=== PATIENT | female | born 1990 | race Caucasian/White ===

== ENCOUNTER → 2017-02-23 | Outpatient (CLI) | payer BC ==
--- NOTE | 2017-02-23 12:33 | Diagnostic Imaging Report ---
Ultrasound of the appendix. INDICATION: Right lower quadrant pain. FINDINGS: The right lower quadrant demonstrates no fluid collection or abscess. The appendix is not seen. IMPRESSION: The appendix is not seen, probably obscured by bowel gas. Correlate clinically. Dictated by: Dictated on workstation # [id number]
--- NOTE | 2017-02-23 12:40 | Diagnostic Imaging Report ---
Transabdominal and transvaginal pelvic ultrasound. INDICATION: Pelvic pain, right lower quadrant pain. FINDINGS: The uterus is 7.9 x 4.5 x 4.6 cm. The endometrial stripe is 2 mm in thickness. The myometrium is slightly heterogeneous with no focal lesion seen. The right ovary is 6.4 x 3.9 x 3.7 cm. There is a 3.8 x 3.1 x 3.3-cm simple-appearing cyst in the right ovary. In addition there is a follicle with internal debris and septations probably hemorrhagic measuring 1.8 x 1.3 x 2.3 cm. Arterial and venous waveforms are demonstrated in the adjacent right ovarian parenchyma. The left ovary is 1.8 x 1.6 x 2.3 cm in size with normal follicles and arterial flow seen. No significant fluid collection or free fluid in the pelvis seen. IMPRESSION: There is a small hemorrhagic follicle and a 3.8-cm simple-appearing cyst seen in the right ovary. Dictated by: Dictated on workstation # [id number]
== END ==
LOC: RAD 09:14
PROVIDERS: ATTEND Nurse Practitioner
DX: N83.201 Unspecified ovarian cyst, right side (principal)
CPT/HCPCS: 76705; 76830; 76856

== ENCOUNTER → 2017-08-18 | Outpatient (CLI) | payer BC ==
--- NOTE | 2017-08-21 12:11 | Diagnostic Imaging Report ---
EXAMINATION: Ultrasound of the right breast. INDICATION: Right axillary mass. COMPARISON: No prior studies are available for comparison. FINDINGS: By history, the patient has a palpable abnormality in the right axilla. The ultrasound examination of this area, however, failed to show any discrete solid or cystic mass. I suspect that the palpable abnormality in question is related to fibroglandular tissue alone; however, if clinical concern regarding an underlying abnormality persists, then biopsy should still be considered. IMPRESSION: There is no discrete solid or cystic mass in the area of the patient's palpable abnormality. Recommendations as above. ACR BI-RADS Category 1: Negative. Dictated by: Dictated on workstation # [id number]
== END ==
LOC: RAD 13:41
DX: R22.31 Localized swelling, mass and lump, right upper limb (principal); M79.621 Pain in right upper arm

== ENCOUNTER → 2020-03-30 | Outpatient (CLI) | payer BC ==
--- NOTE | 2020-03-30 14:50 | Diagnostic Imaging Report ---
INDICATION: Twin . TECHNIQUE: Multiple real-time grayscale images were obtained over the gravid uterus. COMPARISON: 01/27/2020. FINDINGS: The prior OB ultrasound exam performed [place] [facility] [place] [facility] on 01/27/2020 noted twin living fetuses approximately 23 weeks 1 days gestation. On this exam, both fetuses are again evident.. Twin A is cephalic in presentation on the maternal right while twin B is also cephalic in presentation on maternal left. heart motion for each twin was identified and a rate of 140 BPM was recorded between A and 176 BPM for twin B. There are no abnormalities identified. The amniotic fluid volume is within normal limits. A membrane was noted. The placenta for twin A is on the maternal right and posterior and for twin B anterior and on the maternal left. The growth parameter have progressed as expected since the prior exam. The estimated weight for fetus A is in the 60th percentile and for fetus B in the 78th percentile. Biometrical measurements are as follows: Biparietal 8.98 cm, age 36 weeks 3 days. Head circumference 32.06 cm, age 36 weeks 2 days. Abdominal circumference 25.80 cm, age 30 weeks 0 days. Femur length 6.24 cm, age 32 weeks 3 days. Sonographic estimate age: 33 weeks 6 days. Sonographic estimated date of delivery: 05/12/2020. Estimated Weight: 1838 gm (+/- 268 gm). LMP percentile: 60%. heart rate: 140 beats per minute. number: 1 of 2. IMPRESSION: 1. There are twin living fetus in cephalic presentation. The fetuses are approximately 32 weeks 4 days gestation +/- 2 weeks. EDC remains May 24, 2020. 2. There are no abnormalities identified. 3. The growth parameters have progressed as expected since the prior exam. Dictated by: Dictated on workstation # [id number]
== END ==
LOC: RAD 13:00
PROVIDERS: ATTEND Obstetrics & Gynecology
DX: O30.043 Twin pregnancy, dichorionic/diamniotic, third trimester (principal); Z3A.30 30 weeks gestation of pregnancy
CPT/HCPCS: 76805; 76810

== ENCOUNTER → 2020-04-21 | Outpatient (CLI) | payer BC ==
--- NOTE | 2020-04-21 15:59 | Diagnostic Imaging Report ---
INDICATION: Twin . TECHNIQUE: Multiple real-time grayscale images were obtained over the gravid uterus. COMPARISON: 03/30/2020. FINDINGS: Twin live intrauterine is noted. Baby A is cephalic and to the right. Baby B is cephalic and to the left. Baby A heart rate is 122 bpm. Baby B heart rate is 146 bpm. Baby A placenta is posterior and to the right. Baby B placenta is anterior and to the left. Amniotic fluid volume appears appropriate. Biophysical profile score for baby A is 8/8. Biophysical profile score for baby B is 8/8. Biometrical measurements are as follows: Biparietal 9.81 cm, age 42 weeks 2 days. Head circumference 33.33 cm, age 38 weeks 1 days. Abdominal circumference 29.17 cm, age 33 weeks 2 days. Femur length 6.83 cm, age 35 weeks 1 days. Sonographic estimate age: 36 weeks 5 days. Sonographic estimated date of delivery: 05/14/2020. Estimated Weight: 2533 gm (+/- 370 gm). LMP percentile: 62%. heart rate: 122 beats per minute. number: 1 of 2. IMPRESSION: Twin live intrauterine approximately 36-37 weeks gestational age. No complicating features are seen. Biophysical profile scores are both 8/8 for baby A and baby B. Dictated by: Dictated on workstation # [id number]
== END ==
LOC: RAD 13:30
PROVIDERS: ATTEND Obstetrics & Gynecology
DX: O30.043 Twin pregnancy, dichorionic/diamniotic, third trimester (principal); Z3A.36 36 weeks gestation of pregnancy
CPT/HCPCS: 76805; 76810; 76819

== ENCOUNTER → 2020-04-30 | Outpatient (CLI) | payer BC ==
--- NOTE | 2020-04-30 14:59 | Diagnostic Imaging Report ---
INDICATION: Twin . EXAMINATION: A biophysical profile was performed of twin A and twin B. FINDINGS: Twin A: Twin A is in cephalic presentation. heart rate was recorded at 140 bpm. Amniotic fluid index is 10.7 cm. Biophysical profile score is normal at 8 out of 8. Twin B: Twin B is in a cephalic presentation. heart rate was recorded at 130 bpm. Amniotic fluid index is 10.7 cm. Biophysical profile score is 8 out of 8. IMPRESSION: Twin intrauterine with biophysical profile scores of 8 out of 8 for both twins. Dictated by: Dictated on workstation # [id number]
== END ==
LOC: RAD 12:00
PROVIDERS: ATTEND Obstetrics & Gynecology
DX: O30.043 Twin pregnancy, dichorionic/diamniotic, third trimester (principal); Z3A.00 Weeks of gestation of pregnancy not specified
CPT/HCPCS: 76810; 76819

== ENCOUNTER → 2020-05-14 | Outpatient (CLI) | payer BC ==
[~2020-05-14] MED LIST: ACET-93 PO; BENZ78AE5 TP; DCS100C PO; FERR325T18 PO; IBUP-844 PO; PREN1TAB19 PO
== END ==
LOC: LABNPT 08:29
PROVIDERS: ATTEND Obstetrics & Gynecology
DX: Z01.89 Encounter for other specified special examinations (principal); Z20.828 Contact with and (suspected) exposure to other viral communicable diseases
CPT/HCPCS: 87635

== ENCOUNTER 2020-05-15 07:00 | Inpatient (IN) | payer BC ==
[2020-05-15] VITALS (58 sets, daily range): BP systolic 90–176; BP diastolic 54–131
[~2020-05-15] VITALS: Ht 175 cm; Wt 85.3 kg
--- NOTE | 2020-05-15 07:13 | NUR ---
ROBEL FERNANDEZ presented to unit via ambulatory from ED, accompanied by Sung, , with c/o INDUCTION. ROBEL FERNANDEZ weighed, gowned, voided, and to bed. EFHM and TOCO applied, VS taken. ROBEL FERNANDEZ oriented to bed controls, call light, TV, heat, and A/C controls.
[2020-05-15] MEDS ORDERED: D5 LR IV SOLUTION 1,000 ML IV ONE (07:51)
[2020-05-15] MEDS ORDERED: OXYTOCIN PRE-MIX DRIP 500 ML IV SCH ×2 (08:00→18:45)
[2020-05-15] MEDS ORDERED: MINERAL OIL CONCENTRATE 99.9% 15 ML UDC TOP PRN (08:00)
[2020-05-15 08:31] LABS: BASOPHILS % (AUTO) 0 % (0-10); EOSINOPHILS # (AUTO) 0.1 10^3/uL (0.0-0.3); EOSINOPHILS % (AUTO) 1 % (0-10); HEMATOCRIT 31 % (35-52); HEMOGLOBIN 10.1 g/dL (11.5-16.0); LYMPHOCYTES # (AUTO) 1.3 10^3/uL (1.0-4.0); LYMPHOCYTES % (AUTO) 12 % (12-44); MEAN CORPUSCULAR HEMOGLOBIN 29 pg (25-34); MEAN CORPUSCULAR HGB CONC 33 g/dL (32-36); MEAN CORPUSCULAR VOLUME 88 fL (80-99); MEAN PLATELET VOLUME 11.1 fL (9.0-12.2); MONOCYTES % (AUTO) 9 % (0-12); NEUTROPHILS # (AUTO) 8.5 10^3/uL (1.8-7.8); NEUTROPHILS % (AUTO) 78 % (42-75); PLATELET COUNT 157 10^3/uL (130-400); WHITE BLOOD COUNT 10.9 10^3/uL (4.3-11.0)
[2020-05-15] MEDS ORDERED: fentaNYL 2 mcg/ml BUPIVA 0.125 100 ML ONE (08:31)
[2020-05-15] MEDS ORDERED: LACTATED RINGERS 1,000 ML IV SCH (08:45)
[2020-05-15] MEDS ORDERED: fentaNYL INJECTION 100 MCG/2 ML AMP ONE (09:30)
[2020-05-15] MEDS ORDERED: PREN1TAB19 PO (09:31)
[2020-05-15] MEDS ORDERED: LACTATED RINGERS 1,000 ML IV ONE (09:45)
[2020-05-15] MEDS ORDERED: NALOXONE 0.4 MG/ML 1 ML (NARCAN) VIAL IV PRN ×2 (09:45)
[2020-05-15] MEDS ORDERED: diphenhydrAMINE 50 MG/ML INJ (BENADRYL) IV PRN (09:45)
[2020-05-15] MEDS ORDERED: EPIDURAL (fentaNYL 2 MCG/ML BUPIVA 0.125%)100 ML BAG EPI PRN (09:45)
[2020-05-15] MEDS ORDERED: METOCLOPRAMIDE INJ 10 MG/2 ML (REGLAN) IV PRN (09:45)
[2020-05-15 10:05] LABS: BILIRUBIN,URINE NEGATIVE (NEGATIVE); CLARITY,URINE SL CLOUDY; COLOR,URINE YELLOW; GLUCOSE, URINE (UA) NEGATIVE (NEGATIVE); KETONES,URINE NEGATIVE (NEGATIVE); LEUKOCYTE ESTERASE ,URINE 3+ (NEGATIVE); NITRITE,URINE NEGATIVE (NEGATIVE); PH,URINE 5.5 (5-9); PROTEIN,URINE NEGATIVE (NEGATIVE)
[2020-05-15 10:17] LABS: BACTERIA,URINE LARGE /HPF; RBC,URINE 0-2 /HPF; SQUAMOUS EPITHELIAL CELL,UR 25-50 /HPF; WBC,URINE 25-50 /HPF
[2020-05-15] MEDS ORDERED: LIDOCAINE/EPI 2% 1:200,00 (XYLOCAINE) 10 ML VIAL ONE (11:14)
[2020-05-15] MEDS: ONDANSETRON 4 MG/2 ML (SDV) Z0FRAN IV PRN ×3 (11:18→21:15)
--- NOTE | 2020-05-15 13:59 | History & Physical-OB ---
OB - Chief Complaint & HPI Date/Time Date of Admission: Date of Admission: May 15, 2020 at 07:04 Date seen by a Provider: May 15, 2020 Time Seen by a Provider: 09:00 Chief Complaint/History OB-Reason for Admission/Chief: Induction of Labor (Twin gestation) Hx : 1 Hx Para: 0 Expected Date of Delivery: May 31, 2020 Gestational Age in Weeks: 37 Gestational Age in Days: 5 Other reason for admission: Twin gestation with mild growth discordance; testing wnl. Gestational hypertension. no proteinuria MFM recommended induction 37-38 + weeks. IOL today due to favorable cervix, elevated blood pressures and mild discordance of growth. rub NI O- GBS - HbSAg- Hep c - HIV- VDRL NR Admission Nurse Assessment Rev: Yes Allergies and Home Medications Allergies Uncoded Allergies: Bactrim, Sulfa (Allergy, Mild, Vomiting, 05/15/20) Home Medications Vit/Iron Fumarate/FA 1 Each Tablet, 1 EACH PO DAILY, (Reported) Patient Home Medication List Home Medication List Reviewed: Yes OB - History Hx of Present Ultrasounds: Normal mid trimester US Obstetrical Complications: Gestational Hypertension Obstetrical History Hx : 2 Hx Para: 0 Patient Past Medical History N[place] Social History/Family History HIV/AIDS: No Recent Infectious Disease Expo: No Sexually Transmitted Disease: No Alcohol Use: Denies Use Recreational Drug Use: No Smoking Cessation: Never smoker Immunizations Hepatitis A: No Hepatitis B: No Tetanus Booster (TDap): Less than 5yrs Date of Influenza Vaccine: Mar 26, 2020 Rubella: not immune RPR/VDRL: Negative GBS Status: Negative HBsAG: Negative OB - Admission Exam Physical Exam Vitals: Vital Signs 05/15/20 05/15/20 05/15/20 05/15/20 07:30 09:32 10:02 10:15 Temp 37.1 Pulse 100 Resp 16 B/P (MAP) 113/67 (82) Pulse Ox 100 O2 Delivery Room Air Heart: Rhythm Normal Lungs: Clear, Equal Abdomen: Gravid Extremities: Normal Reflexes: Normal Cervical Dilatation: 3cm Effacement: 75% Station: -1 Membranes: Intact Heart Rate: 140's Accelerations: Accelerations Present Decelerations: No Decelerations Short Term Variability: Present Nursing Home Variability: Average (6-25) Contractions on Admission: >10 Minutes Apart Labs Laboratory Tests Test 05/15/20 07:20 05/15/20 08:12 Range/Units Urine Color YELLOW Urine Clarity SL CLOUDY Urine pH 5.5 5-9 Urine Specific [place] 1.010 L 1.016-1.022 Urine Protein NEGATIVE NEGATIVE Urine Glucose (UA) NEGATIVE NEGATIVE Urine Ketones NEGATIVE NEGATIVE Urine Nitrite NEGATIVE NEGATIVE Urine Bilirubin NEGATIVE NEGATIVE Urine Urobilinogen 0.2 < = 1.0 MG/DL Urine Leukocyte Esterase 3+ H NEGATIVE Urine RBC (Auto) NEGATIVE NEGATIVE Urine RBC 0-2 /HPF Urine WBC 25-50 H /HPF Urine Squamous Epithelial Cells 25-50 H /HPF Urine Crystals NONE /LPF Urine Bacteria LARGE H /HPF Urine Casts NONE /LPF Urine Mucus NEGATIVE /LPF Urine Culture Indicated CULTURE PENDING White Blood Count 10.9 4.3-11.0 10^3/uL Red Blood Count 3.49 L 3.80-5.11 10^6/uL Hemoglobin 10.1 L 11.5-16.0 g/dL Hematocrit 31 L 35-52 % Mean Corpuscular Volume 88 80-99 fL Mean Corpuscular Hemoglobin 29 25-34 pg Mean Corpuscular Hemoglobin Concent 33 32-36 g/dL Red Cell Distribution Width 13.3 10.0-14.5 % Platelet Count 157 130-400 10^3/uL Mean Platelet Volume 11.1 9.0-12.2 fL Immature Granulocyte % (Auto) 1 % Neutrophils (%) (Auto) 78 H 42-75 % Lymphocytes (%) (Auto) 12 12-44 % Monocytes (%) (Auto) 9 0-12 % Eosinophils (%) (Auto) 1 0-10 % Basophils (%) (Auto) 0 0-10 % Neutrophils # (Auto) 8.5 H 1.8-7.8 10^3/uL Lymphocytes # (Auto) 1.3 1.0-4.0 10^3/uL Monocytes # (Auto) 1.0 0.0-1.0 10^3/uL Eosinophils # (Auto) 0.1 0.0-0.3 10^3/uL Basophils # (Auto) 0.0 0.0-0.1 10^3/uL Immature Granulocyte # (Auto) 0.1 0.0-0.1 10^3/uL OB - Assessment/Plan/Diagnosis Assessment Assessment: induction of labor, other (37 5/7 week gestation/ di di twins/ mild gest hypertension) Admission Dx Twin induction of labor Will AROM and augment with pitocin Anticipate x 2 Admission Status: Inpatient Order (span 2 midnights) Reason for Inpatient Admission: Labor Plan Plan: Induction CLARIBEL MANUEL DO May 15, 2020 13:59
[2020-05-15] MEDS ORDERED: CATHETER FLUSH 10 ML SYR IV SCH ×2 (14:00→22:00)
[2020-05-15] MEDS: D5 LR IV SOLUTION 1,000 ML IV SCH ×2 (15:04→21:58)
[2020-05-15] MEDS ORDERED: LIDOCAINE PF 2% 5 ML (XYLOCAINE) VIAL ONE (15:29)
[2020-05-15] MEDS: fentaNYL 2 mcg/ml BUPIVA 0.125 100 ML EPI PRN ×2 (15:45→21:46)
--- NOTE | 2020-05-15 17:03 | NUR ---
Dr Hill notified of 8-9 cms per phone. [phone] Dr Hill present. Pt very uncomfortable with epidural. Cervix remains.
[2020-05-15] MEDS ORDERED: WITCH HAZEL(TUCKS) 40 EA JAR TOP PRN (18:45)
[2020-05-15] MEDS ORDERED: TETANUS,DIPTH,PERTUSS P/F (BOOSTRIX) 0.5 ML VIAL IM ONE (18:45)
[2020-05-15] MEDS ORDERED: BENZOCAINE/MENTHOL (DERMOPLAST) 60 ML CAN TP PRN (18:45)
[2020-05-15] MEDS ORDERED: MEASLES,MUMPS,RUBELLA 1 EA INJ SQ ONE (18:45)
--- NOTE | 2020-05-16 00:44 | OB Labor & Delivery Record ---
Vag Delivery Note Vag Delivery Note Date of Delivery: 05/16/20 Preoperative Diagnosis: Nery Gaviria is a 30 /Para 2 / 0,Gestational Age 37 5/7 weeks, twin gestation, mild gestational hypertension, growth discordance Postoperative Diagnosis: Same Surgeon: CLARIBEL AMNUEL Anesthesia: epidural, local Delivery Type: vacuum assisted vaginal delivery of twins Findings: Viable twin girls , apgars Twin A 9/9, B 7/9, weight Twin A 6#2 ounces, B 6#4ounces Lacerations: right MLE Intact placenta with 3 vessel cord. No nuchal cord, body cord or shoulder dystocia Estimated Blood Loss:300 ml Complications: None Condition: Stable Description of Procedure: The patient is a 30 /Para 2 / 0,Gestational Age 37 5/7 weeks, twin gestation, mild gestational hypertension, growth discordance who presented for induction of labor.. She was admitted and informed consent was obtained. Her labor course was remarkable for AROM and induction of labor with pitocin. She progressed to complete dilatation and began to push. She was then set up for delivery. With + 2 station and due to maternal fatigue (after 2 hours of pushing) a low outlet vacuum was performed. The vacuum was placed and, with two pushes and no popoff Twin A 's head was delivered atraumatically in the SYLVAIN position. The shoulders and remainder of the 's body were then delivered without difficulty. Upon delivery, the head was held below the level of the perineum and the mouth and nares were bulb suctioned. The cord was doubly clamped and cut and the infant was handed off to the pediatric staff. There was a 1st degree laceration noted, but this was not repaired at this time due to the delivery of the second twin. An US was then done for position of Twin B. It was still vertex, but high in the pelvis (floating), so pitocin was increased. After the head began to descend, AROM was accomplished. She then began to push and pushed for > 1 1/2 hours. There were deep variable decelerations. With +2 station, due to deep variable decelerations (category II strip) and continued maternal fatigue, low outlet vacuum was placed. The head was op, so positioning was carefully assessed prior to placing the vacuum. The head was delivered with two pushes and then a popoff. A right mediolateral episiotomy had previously been cut after injecting the perineum with 1%lidocaine with epinephrine. As the head was delivering, the vacuum was left off and the was allowed to deliver. There was a compound presentation with the 's hand alongside its face. The shoulders and remainder of the infants body was then delivered without any difficulty. The nose and mouth were bulb suctioned and the cord was double clamped and cut. The was handed off to the heat treat furnace operator. Two intact placentas with 3-vessel cord delivered via Felicitas and there was found to be minimal bleeding.~ Vigorous fundal massage was performed and the fundus was found to be firm. IV oxytocin was given. Examination of the vagina and perineum revealed no extension of the Right mediolateral episiotomy and this was repaired in the usual fashion with 3-0 vicryl suture. Following the repair, sponge, instrument and needle counts were correct. Mom and baby were both in stable condition in the labor suite. Vitals - Labs Vital Signs - I&O Vital Signs Date Time Temp Pulse Resp B/P (MAP) Pulse Ox O2 Delivery O2 Flow Rate FiO2 05/15/20 19:00 73 121/75 (90) Room Air 05/15/20 18:45 71 109/70 (83) Room Air 05/15/20 18:30 85 121/72 (88) Room Air 05/15/20 18:15 73 126/57 (80) 99 Room Air 05/15/20 18:00 37.7 84 119/71 (87) 99 Room Air 05/15/20 17:45 89 122/73 (89) 99 Room Air 05/15/20 17:30 80 128/80 (96) 99 Room Air 05/15/20 17:15 84 123/63 (83) 99 Room Air 05/15/20 17:00 83 120/62 (81) 05/15/20 16:45 78 121/78 (92) 05/15/20 16:30 74 20 112/69 (83) 05/15/20 16:15 83 105/64 (78) 05/15/20 16:00 37.4 74 109/71 (84) 05/15/20 15:45 37.4 74 102/75 (84) 05/15/20 15:30 75 101/57 (72) 05/15/20 15:15 75 108/70 (83) 05/15/20 15:00 75 116/73 (87) 05/15/20 14:45 77 109/74 (86) 05/15/20 14:30 79 20 110/73 (85) 05/15/20 14:15 77 20 116/75 (89) 05/15/20 14:00 81 114/69 (84) 05/15/20 13:45 71 116/69 (85) 05/15/20 13:30 36.9 80 116/72 (87) 05/15/20 13:15 83 117/69 (85) 05/15/20 13:00 83 16 109/71 (84) 05/15/20 12:45 84 109/71 (84) 05/15/20 12:30 79 117/68 (84) 05/15/20 12:15 80 118/72 (87) 05/15/20 12:00 83 16 111/73 (86) 05/15/20 11:45 97 112/76 (88) 05/15/20 11:30 86 116/72 (87) 05/15/20 11:15 92 114/72 (86) 05/15/20 11:00 80 109/69 (82) 16 05/15/20 10:45 87 106/66 (79) 05/15/20 10:30 103 111/67 (82) 100 05/15/20 10:15 100 113/67 (82) 100 05/15/20 10:10 89 102/66 (78) 99 05/15/20 10:05 95 115/75 (88) 99 05/15/20 10:02 100 112/75 (87) Room Air 05/15/20 09:59 90 121/83 (96) 99 Room Air 05/15/20 09:57 114 121/83 (96) 98 Room Air 05/15/20 09:52 101 124/78 (93) 98 Room Air 05/15/20 09:51 95 117/75 (89) 98 Room Air 05/15/20 09:45 111 126/78 (94) 100 Room Air 05/15/20 09:39 91 120/77 (91) 100 Room Air 05/15/20 09:32 90 16 110/77 (88) 97 Room Air 05/15/20 08:50 93 120/78 (92) Room Air 05/15/20 07:30 37.1 118 20 98 Room Air I & O 05/16/20 07:00 Intake Total 2000 ml Balance 2000 ml Labs Laboratory Tests 05/15/20 07:20: Urine Color YELLOW, Urine Clarity SL CLOUDY, Urine pH 5.5, Urine Specific [place] 1.010L, Urine Protein NEGATIVE, Urine Glucose (UA) NEGATIVE, Urine Ketones NEGATIVE, Urine Nitrite NEGATIVE, Urine Bilirubin NEGATIVE, Urine Urobilinogen 0.2, Urine Leukocyte Esterase 3+H, Urine RBC (Auto) NEGATIVE, Urine RBC 0-2, Urine WBC 25-50H, Urine Squamous Epithelial Cells 25-50H, Urine Crystals NONE, Urine Bacteria LARGEH, Urine Casts NONE, Urine Mucus NEGATIVE, Urine Culture Indicated CULTURE PENDING 05/15/20 08:12: White Blood Count 10.9, Red Blood Count 3.49L, Hemoglobin 10.1L, Hematocrit 31L, Mean Corpuscular Volume 88, Mean Corpuscular Hemoglobin 29, Mean Corpuscular Hemoglobin Concent 33, Red Cell Distribution Width 13.3, Platelet Count 157, Mean Platelet Volume 11.1, Immature Granulocyte % (Auto) 1, Neutrophils (%) (Auto) 78H, Lymphocytes (%) (Auto) 12, Monocytes (%) (Auto) 9, Eosinophils (%) (Auto) 1, Basophils (%) (Auto) 0, Neutrophils # (Auto) 8.5H, Lymphocytes # (Auto) 1.3, Monocytes # (Auto) 1.0, Eosinophils # (Auto) 0.1, Basophils # (Auto) 0.0, Immature Granulocyte # (Auto) 0.1 CLARIBEL MANUEL DO May 16, 2020 00:44
[2020-05-16 00:48] VITALS: BP 123/62
[2020-05-16 02:14] VITALS: BP 113/55
[2020-05-16] MEDS: IBUPROFEN 600 MG (MOTRIN) TAB PO SCH ×4 (03:27→20:22)
[2020-05-16 03:46] VITALS: BP 126/81
[2020-05-16] MEDS: ACETAMINOPHEN 500 MG TAB (TYLENOL) PO SCH ×4 (05:09→22:46)
--- NOTE | 2020-05-16 06:30 | NUR ---
Pt calls out reporting heavy bleeding, upon fundal assessment mass noted to L side, pt up to void, large amt urine voided, pt to bed, bleeding wnl, pt reassured, understanding voiced, uterus now palpated midline. will cont to monitor.
[2020-05-16 06:58] LABS: BASOPHILS % (AUTO) 0 % (0-10); EOSINOPHILS % (AUTO) 0 % (0-10); HEMATOCRIT 32 % (35-52); LYMPHOCYTES # (AUTO) 1.3 10^3/uL (1.0-4.0); LYMPHOCYTES % (AUTO) 5 % (12-44); MEAN CORPUSCULAR HEMOGLOBIN 28 pg (25-34); MEAN CORPUSCULAR HGB CONC 32 g/dL (32-36); MEAN CORPUSCULAR VOLUME 90 fL (80-99); MEAN PLATELET VOLUME 11.6 fL (9.0-12.2); MONOCYTES # (AUTO) 1.3 10^3/uL (0.0-1.0); MONOCYTES % (AUTO) 6 % (0-12); NEUTROPHILS # (AUTO) 20.2 10^3/uL (1.8-7.8); NEUTROPHILS % (AUTO) 88 % (42-75); PLATELET COUNT 164 10^3/uL (130-400)
[2020-05-16 09:45] VITALS: BP 116/67
--- NOTE | 2020-05-16 09:45 | NUR ---
AM shift assessment completed and vital signs obtained, see interventions. Plan of care reviewed with patient and verbalization voiced. Scheduled Motrin, Colace, PNV, and Iron PO given. Shower supplies provided to patient.
[2020-05-16] MEDS: FERROUS SULF 325 MG (IRON) TAB PO SCH (09:55)
[2020-05-16] MEDS: DOCUSATE SODIUM 100 MG (COLACE) CAP PO SCH ×2 (09:55→20:22)
[2020-05-16] MEDS: PRENATAL VITAMIN 1 EA TAB PO SCH (09:55)
[2020-05-16 14:03] VITALS: BP 124/70
[2020-05-16] MEDS ORDERED: IBUP-844 PO (16:39)
[2020-05-16] MEDS ORDERED: BENZ78AE5 TP (16:39)
[2020-05-16] MEDS ORDERED: DCS100C PO (16:39)
[2020-05-16] MEDS ORDERED: ACET-93 PO (16:39)
[2020-05-16] MEDS ORDERED: FERR325T18 PO (16:39)
--- NOTE | 2020-05-16 16:42 | Discharge Inst-Women's Service ---
Discharge Inst-Women's Serv Depart Medication/Instructions New, Converted or Re-Newed RX: Transmitted to Pharmacy Final Diagnosis twin gestation vaginal episiotomy Problems Reviewed?: Yes Consults/Follow Up Additional Follow Up: Yes (1-2 weeks for episiotomy check; 6 weeks for pp exam) Activity Activity: Activity as Tolerated Driving Instructions: You May Drive NO SMOKING: NO SMOKING Nothing Inside Vagina: No Douching, No [place], No Tampons Diet Discharge Diet: No Restrictions Symptoms to Report to : Bleeding Excessive, Pain Increased, Fever Over 101 Degrees F, Vaginal Bleeding Increase, Cramps in Feet or Legs, Vaginal Discharge Foul For Any Problems or Questions: Contact Your Physician Skin/Wound Care Bathing Instructions: CLARIBEL Terry DO May 16, 2020 16:42
[2020-05-16 20:22] VITALS: BP 111/63
--- NOTE | 2020-05-16 22:22 | Anesthesia-Regional Post-Op ---
Regional Patient Condition Mental Status: Alert, Oriented x3 Circulation: Same as Pre-Op Headache: Absent Sensation: Full Recovery Motor Block: Absent Post Op Complications Complications None Follow Up Care/Instructions Patient Instructions None needed. Anesthesia/Patient Condition Patient is doing well, no complaints, stable vital signs, no apparent adverse anesthesia problems. No complications reported per nursing. HARSHAL VENEGAS CRNA May 16, 2020 22:22
[2020-05-17 03:08] VITALS: BP 114/66
[2020-05-17] MEDS: IBUPROFEN 600 MG (MOTRIN) TAB PO SCH ×4 (03:08→21:24)
--- NOTE | 2020-05-17 07:02 | Progress Note ---
Standard Progress Note Progress Notes/Assess & Plan Date Seen by a Provider: May 17, 2020 Time Seen by a Provider: 07:01 Progress/Assessment & Plan This patient is without complaint. She is ambulating, voiding, tolerating oral intake well and has good pain control. Vital Signs Date Time Temp Pulse Resp B/P (MAP) Pulse Ox O2 Delivery O2 Flow Rate FiO2 05/17/20 03:08 36.8 82 18 114/66 (82) 98 Room Air 05/16/20 20:22 36.5 97 16 111/63 (79) 98 Room Air 05/16/20 14:03 36.4 98 16 124/70 (88) 98 Room Air 05/16/20 09:45 36.6 84 16 116/67 (83) 97 Room Air Vital signs are stable. Patient is afebrile. Fundus is firm below the umbilicus and nontender. Extremities show no clubbing cyanosis. There is no Homans' sign. Assessment and plan day #1 and 2 post vaginal delivery of twins just before and just after midnight Monday night and Monday. Patient is doing well and will have routine convalescent care SATNAM MATIAS MD May 17, 2020 07:02
[2020-05-17 08:40] VITALS: BP 110/79
[2020-05-17] MEDS: DOCUSATE SODIUM 100 MG (COLACE) CAP PO SCH ×2 (08:48→21:24)
[2020-05-17] MEDS: PRENATAL VITAMIN 1 EA TAB PO SCH (08:48)
[2020-05-17] MEDS: FERROUS SULF 325 MG (IRON) TAB PO SCH (08:48)
[2020-05-17] MEDS: ACETAMINOPHEN 500 MG TAB (TYLENOL) PO SCH ×3 (08:50→21:25)
[2020-05-17 13:45] VITALS: BP 104/64
[2020-05-17] MEDS ORDERED: MEASLES,MUMPS,RUBELLA 1 EA INJ SC ONE (16:15)
[2020-05-17 21:25] VITALS: BP 120/75
[2020-05-18 04:25] VITALS: BP 116/72
[2020-05-18] MEDS: ACETAMINOPHEN 500 MG TAB (TYLENOL) PO SCH (04:25)
[2020-05-18] MEDS: IBUPROFEN 600 MG (MOTRIN) TAB PO SCH ×2 (04:26→09:53)
[2020-05-18] MEDS: PRENATAL VITAMIN 1 EA TAB PO SCH (09:52)
[2020-05-18] MEDS: DOCUSATE SODIUM 100 MG (COLACE) CAP PO SCH (09:52)
[2020-05-18] MEDS: FERROUS SULF 325 MG (IRON) TAB PO SCH (09:52)
[2020-05-18 09:57] VITALS: BP 120/74
--- NOTE | 2020-05-18 09:57 | NUR ---
initial shift assessment completed, see interventions for further.
--- NOTE | 2020-05-18 13:53 | NUR ---
dismissal orders received from .
--- NOTE | 2020-05-18 14:54 | NUR ---
dismissal instructions given, verbalizes understanding. reviewed follow appointments and D/C Rx's. signature page signed, placed on chart.
--- NOTE | 2020-05-18 16:30 | NUR ---
pt dismissed to private vehicle via w/c with ANA LILIA Cormier , twins and @ side. infant's secured in rear facing car seat. pt stable upon dismissal.
== END 2020-05-18 16:30 | disposition home or self-care (01) | DRG 807 ==
LOC: LDRP 07:04
PROVIDERS: ADMIT Obstetrics & Gynecology; ATTEND Obstetrics & Gynecology
PROC: 10D07Z6 Extraction of Products of Conception, Vacuum, Via Natural or Artificial Opening (ICD-10-PCS; principal; 2020-05-16)
PROC: 10907ZC Drainage of Amniotic Fluid, Therapeutic from Products of Conception, Via Natural or Artificial Opening (ICD-10-PCS; 2020-05-16)
PROC: 0W8NXZZ Division of Female Perineum, External Approach (ICD-10-PCS; 2020-05-16)
PROC: 0HQ9XZZ Repair Perineum Skin, External Approach (ICD-10-PCS; 2020-05-16)
DX: O30.043 Twin pregnancy, dichorionic/diamniotic, third trimester (principal); Z37.2 Twins, both liveborn; O36.5930 Maternal care for other known or suspected poor fetal growth, third trimester, not applicable or unspecified; O13.4 Gestational [pregnancy-induced] hypertension without significant proteinuria, complicating childbirth; O26.813 Pregnancy related exhaustion and fatigue, third trimester; O70.0 First degree perineal laceration during delivery; O76 Abnormality in fetal heart rate and rhythm complicating labor and delivery; O32.6XX2 Maternal care for compound presentation, fetus 2; Z3A.37 37 weeks gestation of pregnancy; Z23 Encounter for immunization
CPT/HCPCS: 36415; 81000; 85025; 86850; 86900; 86901; 87088; 90707

== ENCOUNTER 2021-08-07 20:48 | Emergency (ER) | payer BC ==
[~2021-08-07] VITALS: Ht 177.8 cm; Wt 68.0 kg
[~2021-08-07 20:48] MED LIST changes: -DCS100C PO; +DOCU-239 PO
[2021-08-07 20:55] VITALS: BP 124/80
[2021-08-07] MEDS ORDERED: ONDANSETRON 4 MG/2 ML (SDV) Z0FRAN IVP ONE (21:00)
[2021-08-07] MEDS ORDERED: LACTATED RINGERS 1,000 ML IV SCH (21:00)
[2021-08-07 21:07] LABS: BILIRUBIN,URINE NEGATIVE (NEGATIVE); CLARITY,URINE SL CLOUDY; COLOR,URINE ORANGE; GLUCOSE, URINE (UA) NEGATIVE (NEGATIVE); KETONES,URINE 3+ (NEGATIVE); LEUKOCYTE ESTERASE ,URINE NEGATIVE (NEGATIVE); NITRITE,URINE NEGATIVE (NEGATIVE); PROTEIN,URINE TRACE (NEGATIVE)
--- NOTE | 2021-08-07 21:11 | ED Abdominal Pain ---
General Chief Complaint: Abdominal/GI Problems Stated Complaint: VOMITING/ABD PAIN Source of Information: Patient Exam Limitations: No Limitations (ABELINO MOORE APRN) History of Present Illness Date Seen by Provider: Aug 07, 2021 Time Seen by Provider: 21:06 Initial Comments To ER with vomiting and diffuse abdominal pain and diarrhea since this morning. She thought this might be related to some Prydeinig food that she had last night. She took some leftover Zofran that she had from her last with minimal and temporary relief. Timing/Duration: 12-24 Hours Severity/Quality: Moderate Location: Generalized Abdomen Radiation: No Radiation Activities at Onset: None Associated Symptoms: Nausea/Vomiting (ABELINO MOORE APRN) Allergies and Home Medications Allergies Uncoded Allergies: Bactrim, Sulfa (Allergy, Mild, Vomiting, 05/15/20) Patient Home Medication List Home Medication List Reviewed: Yes (ABELINO MOORE APRN) Acetaminophen (Acetaminophen) 500 Mg Tablet, 1,000 MG PO Q8HR Prescribed by: CLARIBEL MANUEL on 05/16/20 1639 Benzocaine/Menthol (Dermoplast Pain Relieving [place]) 78 Gm Aerosol, 0 ML TP UD PRN for PAIN- SEE INSTRUCTIONS Prescribed by: CLARIBEL MANUEL on 05/16/20 1639 Docusate Sodium (Dok) 100 Mg Capsule, 100 MG PO BID Prescribed by: CLARIBEL MANUEL on 05/16/20 1639 Ferrous Sulfate (Ferrous Sulfate) 325 Mg Tablet, 325 MG PO DAILY@0800 Prescribed by: CLARIBEL MANUEL on 05/16/20 1639 Ibuprofen (Ibu) 600 Mg Tablet, 600 MG PO Q6H Prescribed by: CLARIBEL MANUEL on 05/16/20 1639 Ondansetron (Ondansetron Odt) 8 Mg Tab.rapdis, 8 MG PO Q6H PRN for NAUSEA/VOMITING Prescribed by: ABELINO MOORE on 08/07/212201 Vit/Iron Fumarate/FA ( Vitamins Tablet) 1 Each Tablet, 1 EACH PO DAILY, (Reported) Entered as Reported by: JOHNNY ROSSI on 05/15/20 0931 Review of Systems Review of Systems Constitutional: see HPI EENTM: No Symptoms Reported Respiratory: No Symptoms Reported Cardiovascular: No Symptoms Reported Gastrointestinal: See HPI, Abdominal Pain, Diarrhea, Nausea Genitourinary: No Symptoms Reported Musculoskeletal: no symptoms reported Skin: no symptoms reported Psychiatric/Neurological: No Symptoms Reported Endocrine: No Symptoms Reported Hematologic/Lymphatic: No Symptoms Reported (ABELINO MOORE APRN) Past Myyikxr-Bcilrh-Ioreyo Hx Immunizations Up To Date Tetanus Booster (TDap): Less than 5yrs (ABELINO MOORE APRN) Past Medical History Sexually Transmitted Disease: No HIV/AIDS: No (ABELINO MOORE APRN) Physical Exam Vital Signs Vital Signs - First Documented 08/07/21 20:55 Temp 36.7 Pulse 110 Resp 16 B/P (MAP) 124/80 (95) Pulse Ox 98 O2 Delivery Room Air (OVI,SHIELA K DO) Vital Signs Capillary Refill : (ABELINO MOORE APRN) Height/Weight/BMI Height: '" Weight: lbs. oz. kg; 27.85 BMI Method: General Appearance: WD/WN, no apparent distress HEENT: PERRL/EOMI, normal ENT inspection Neck: non-tender, full range of motion Respiratory: no respiratory distress, no accessory muscle use Cardiovascular: regular rate, rhythm, no murmur Gastrointestinal: normal bowel sounds, soft, tenderness Extremities: normal range of motion, non-tender Neurologic/Psychiatric: alert, normal mood/affect, oriented x 3 Skin: normal color, warm/dry (ABELINO MOORE APRN) Progress/Results/Core Measures Results/Orders Lab Results Laboratory Tests Test 08/07/21 21:05 08/07/21 21:15 Range/Units Urine Color ORANGE Urine Clarity SL CLOUDY Urine pH 8.0 5-9 Urine Specific [place] 1.020 1.016-1.022 Urine Protein TRACE H NEGATIVE Urine Glucose (UA) NEGATIVE NEGATIVE Urine Ketones 3+ H NEGATIVE Urine Nitrite NEGATIVE NEGATIVE Urine Bilirubin NEGATIVE NEGATIVE Urine Urobilinogen 1.0 < = 1.0 MG/DL Urine Leukocyte Esterase NEGATIVE NEGATIVE Urine RBC (Auto) NEGATIVE NEGATIVE Urine RBC 0-2 /HPF Urine WBC 0-2 /HPF Urine Crystals PRESENT H /LPF Urine Amorphous Sediment FEW AYLIN PHOSPHATE H /LPF Urine Bacteria TRACE /HPF Urine Casts NONE /LPF Urine Mucus SMALL H /LPF Urine Culture Indicated NO White Blood Count 13.7 H 4.3-11.0 10^3/uL Red Blood Count 4.58 3.80-5.11 10^6/uL Hemoglobin 14.3 11.5-16.0 g/dL Hematocrit 41 35-52 % Mean Corpuscular Volume 90 80-99 fL Mean Corpuscular Hemoglobin 31 25-34 pg Mean Corpuscular Hemoglobin Concent 35 32-36 g/dL Red Cell Distribution Width 12.6 10.0-14.5 % Platelet Count 205 130-400 10^3/uL Mean Platelet Volume 9.8 9.0-12.2 fL Immature Granulocyte % (Auto) 0 % Neutrophils (%) (Auto) 94 H 42-75 % Lymphocytes (%) (Auto) 2 L 12-44 % Monocytes (%) (Auto) 4 0-12 % Eosinophils (%) (Auto) 0 0-10 % Basophils (%) (Auto) 0 0-10 % Neutrophils # (Auto) 12.9 H 1.8-7.8 10^3/uL Lymphocytes # (Auto) 0.2 L 1.0-4.0 10^3/uL Monocytes # (Auto) 0.5 0.0-1.0 10^3/uL Eosinophils # (Auto) 0.0 0.0-0.3 10^3/uL Basophils # (Auto) 0.0 0.0-0.1 10^3/uL Immature Granulocyte # (Auto) 0.0 0.0-0.1 10^3/uL Neutrophils % (Manual) 97 % Monocytes % (Manual) 3 % Blood Morphology Comment NORMAL Sodium Level 137 135-145 MMOL/L Potassium Level 3.5 L 3.6-5.0 MMOL/L Chloride Level 106 98-107 MMOL/L Carbon Dioxide Level 17 L 21-32 MMOL/L Anion Gap 14 5-14 MMOL/L Blood Urea Nitrogen 14 7-18 MG/DL Creatinine 0.73 0.60-1.30 MG/DL Estimat Glomerular Filtration Rate 114 BUN/Creatinine Ratio 19 Glucose Level 116 H 70-105 MG/DL Calcium Level 9.1 8.5-10.1 MG/DL Corrected Calcium 8.8 8.5-10.1 MG/DL Total Bilirubin 1.1 H 0.1-1.0 MG/DL Aspartate Amino Transf (AST/SGOT) 18 5-34 U/L Alanine Aminotransferase (ALT/SGPT) 13 0-55 U/L Alkaline Phosphatase 40 40-136 U/L Total Protein 7.6 6.4-8.2 GM/DL Albumin 4.4 3.2-4.5 GM/DL Lipase 17 8-78 U/L Serum Test, Qualitative NEGATIVE NEGATIVE (SHIELA DIOR DO) Medications Given in ED Current Medications Medications Dose Ordered Sig/Koki Route Start Time Stop Time Status Last Admin Dose Admin Promethazine HCl 25 mg ONCE ONCE IVP 08/07/21 21:15 08/07/21 21:16 DC 08/07/21 21:20 25 MG (SHIELA DIOR DO) Vital Signs/I&O 08/07/21 20:55 Temp 36.7 Pulse 110 Resp 16 B/P (MAP) 124/80 (95) Pulse Ox 98 O2 Delivery Room Air (SHIELA DIOR DO) Departure Communication (Admissions) [id number] much better at this time. No longer has nausea or abdominal pain. Mother at the bedside. We'll discharged home. Heart rate down to 105 blood pressure 105 over 70s. (ABELINO MOORE APRN) Impression Primary Impression: Nausea and vomiting Additional Impression: Diarrhea Disposition: HOME, SELF-CARE Condition: Improved Departure-Patient Inst. Decision time for Depature: 22:01 (ABELINO MOORE APRN) Referrals: NO,LOCAL PHYSICIAN (PCP/Family) Primary Care Physician Patient Instructions: Nausea and Vomiting, Adult Add. Discharge Instructions: 1. Nausea medication as directed. Return to ER for any concerns. Follow-up with your doctor next week. All discharge instructions reviewed with patient and/or family. Voiced understanding. Scripts Ondansetron (Ondansetron Odt) 8 Mg Tab.rapdis 8 MG PO Q6H PRN for NAUSEA/VOMITING, #20 TAB Prov: ABELINO MOORE APRN 08/07/21 ATTENDING PHYSICIAN NOTE: I WAS PHYSICALLY PRESENT ER PHYSICIAN WHEN THIS PATIENT WAS IN ER, BUT I WAS NOT INVOLVED IN ANY DECISION MAKING OR ANY CARE OF THIS PATIENT. (SHIELA DIOR DO) ABELINO MOORE APRN Aug 07, 2021 21:11 SHIELA DIOR DO Aug 07, 2021 22:33
[2021-08-07] MEDS ORDERED: PROMETHAZINE INJ 25 MG/ML (PHENERGAN) AMP IVP ONE (21:15)
[2021-08-07 21:18] LABS: BASOPHILS % (AUTO) 0 % (0-10); EOSINOPHILS % (AUTO) 0 % (0-10); HEMATOCRIT 41 % (35-52); HEMOGLOBIN 14.3 g/dL (11.5-16.0); LYMPHOCYTES # (AUTO) 0.2 10^3/uL (1.0-4.0); LYMPHOCYTES % (AUTO) 2 % (12-44); MEAN CORPUSCULAR HEMOGLOBIN 31 pg (25-34); MEAN CORPUSCULAR HGB CONC 35 g/dL (32-36); MEAN CORPUSCULAR VOLUME 90 fL (80-99); MEAN PLATELET VOLUME 9.8 fL (9.0-12.2); MONOCYTES # (AUTO) 0.5 10^3/uL (0.0-1.0); MONOCYTES % (AUTO) 4 % (0-12); NEUTROPHILS # (AUTO) 12.9 10^3/uL (1.8-7.8); NEUTROPHILS % (AUTO) 94 % (42-75); PLATELET COUNT 205 10^3/uL (130-400); WHITE BLOOD COUNT 13.7 10^3/uL (4.3-11.0)
[2021-08-07 21:20] LABS: AMORPHOUS SEDIMENT,UR FEW AMOR PHOSPHATE /LPF; BACTERIA,URINE TRACE /HPF; RBC,URINE 0-2 /HPF; WBC,URINE 0-2 /HPF
[2021-08-07 21:28] LABS: ALBUMIN 4.4 GM/DL (3.2-4.5); POTASSIUM 3.5 MMOL/L (3.6-5.0)
[2021-08-07 21:30] LABS: CALCIUM 9.1 MG/DL (8.5-10.1)
[2021-08-07 21:31] LABS: TOTAL PROTEIN 7.6 GM/DL (6.4-8.2)
[2021-08-07 21:32] LABS: BILIRUBIN,TOTAL 1.1 MG/DL (0.1-1.0)
[2021-08-07 21:34] LABS: CREATININE SERUM 0.73 MG/DL (0.60-1.30)
[2021-08-07 21:52] LABS: MONOCYTES % (MANUAL) 3 %; NEUTROPHILS % (MANUAL) 97 %
[2021-08-07 21:53] LABS: RBC MORPH NORMAL
[2021-08-07] MEDS ORDERED: ONDA8TAB13 PO (22:02)
== END 2021-08-07 22:19 | disposition home or self-care (01) ==
LOC: EDUNIT# 20:48 → ER 20:50
DX: R11.2 Nausea with vomiting, unspecified (principal); R19.7 Diarrhea, unspecified; Z32.02 Encounter for pregnancy test, result negative
CPT/HCPCS: 36415; 80053; 81000; 83690; 84703; 85007; 85027